=== PATIENT | male | born 2000 | race Two or more races ===

== ENCOUNTER 2024-06-28 17:02 | Emergency (ER) | payer SELFPAY ==
[~2024-06-28] VITALS: Ht 175.3 cm; Wt 79.4 kg
[2024-06-28] MEDS ORDERED: NAPR-1164 PO (17:40)
[2024-06-28 17:46] VITALS: BP 160/101; TEMP 97.8; O2SAT 99
== END 2024-06-28 17:46 | disposition home or self-care (01) ==
LOC: ER 17:07
DX: M54.2 Cervicalgia (principal); R25.2 Cramp and spasm; J45.909 Unspecified asthma, uncomplicated